=== PATIENT | male | born 1990 | race Caucasian/White ===

== ENCOUNTER 2023-02-20 11:48 | Emergency (ER) | payer SELFPAY ==
[2023-02-20 12:01] VITALS: BP 135/87; PULSE 69; RESP 19; TEMP 98.1; BMI 25.4
[2023-02-20 12:52] LABS: BASO % 0.8 % (0-2.0); EOS % 5.7 % (0-4.5); HEMATOCRIT 43.8 % (35.4-49); HEMOGLOBIN 15.1 GM/dL (11.7-16.9); LYMPH % 28.4 % (8-40); MCH 27.3 pg (25.7-33.7); MCHC 34.3 g/dl (32.0-35.9); MEAN CELL VOLUME 79.4 fl (80-96); MEAN PLT VOLUME 7.7 fl (7.5-11.1); MONO % 8.9 % (3.8-10.2); NEUT % 56.2 % (42.8-82.8); PLATELET COUNT 310 10^3/uL (134-434); RBC 5.52 M/mm3 (4.00-5.60); RDW 13.7 % (11.9-15.9); WHITE BLOOD COUNT 7.3 K/mm3 (4.0-10.0)
[2023-02-20 13:31] LABS: ALBUMIN 3.8 g/dl (3.4-5.0); BLOOD UREA NITROGEN 11.1 mg/dL (7-18); CALCIUM 9.2 mg/dL (8.5-10.1)
[2023-02-20 13:34] LABS: CREATININE 0.8 mg/dL (0.55-1.3)
[2023-02-20 13:36] LABS: BILIRUBIN,TOTAL 0.6 mg/dL (0.2-1); TOT PROT 6.7 g/dl (6.4-8.2)
== END 2023-02-20 14:41 | disposition home or self-care (01) ==
LOC: JER 11:48
DX: R42 Dizziness and giddiness (principal); R51.9 Headache, unspecified; R55 Syncope and collapse; R11.0 Nausea; Z20.822 Contact with and (suspected) exposure to COVID-19
CPT/HCPCS: 36415; 70450-TC; 80053; 85025; 99284-25; C9803-CS; U0003; U0005